=== PATIENT | female | born 1960 | race Caucasian/White ===

== ENCOUNTER 2017-02-24 23:45 | Emergency (ER) | payer MEDICARE ==
[~2017-02-24] VITALS: Ht 167.6 cm; Wt 94.7 kg
[2017-02-24 23:50] VITALS: BP 158/117; PULSE 127; RESP 20; TEMP 100.1; O2SAT 96
[2017-02-25 00:45] VITALS: PULSE 117; O2SAT 95
[2017-02-25 01:21] VITALS: PULSE 113; O2SAT 96
--- NOTE | 2017-02-25 01:21 | PD ---
HPI Chief Complaint: ENT Complaint Time Seen by Provider: 01:21 Travel History International Travel<30 days: No Contact w/Intl Traveler<30days: No Traveled to known affect area: No History of Present Illness HPI 56-year-old female presents to the emergency department with sore throat since Saturday and fever noted tonight. Patient states symptoms have worsened with [id number] medications. Patient presents now for further evaluation. Patient denies any shortness of breath now with increased congested and productive cough. Patient is not diabetic. 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") Headaches: Yes Hypertension: Yes Insomnia: Yes Kidney Stones: Yes Pneumonia: Yes Thyroid Disease: Yes (HYPOTHYROIDISM) Tetanus Vaccination: > 5 Years Influenza Vaccination: Yes ?: Not Menopausal: Yes : 0 Ovarian Cysts: Yes Past Surgical History Tonsillectomy: Yes Social History Alcohol Use: No Tobacco Use: Yes (08/29 PPD) Substance Use: No Allergies-Medications (Allergen,Severity, Reaction): Coded Allergies: No Known Allergies (Unverified , 02/25/17) Reported Meds & Prescriptions Reported Meds & Active Scripts Active No Active Prescriptions or Reported Medications Review of Systems Except as stated in HPI: all other systems reviewed are Neg General / Constitutional: Positive: Fever, No: Chills HENT: Positive: Sore Throat, Congestion Cardiovascular: No: Chest Pain or Discomfort Respiratory: Positive: Cough, No: Shortness of Breath Gastrointestinal: No: Vomiting, Abdominal Pain Genitourinary: No: Decreased Urinary Output, Flank Pain Musculoskeletal: Positive: Myalgias, Arthralgias Skin: No Rash Neurologic: No: Weakness Psychiatric: No: Anxiety Hematologic/Lymphatic: No: Lymph Node Enlargement Physical Exam Narrative GENERAL: Well-developed well-nourished female in no acute distress no respiratory distress; no stridor or hoarseness. SKIN: Warm and dry. HEAD: Normocephalic. EYES: No scleral icterus. No injection or drainage. ENT: Mucous membranes moist airway is patent pharyngeal erythema. NECK: Supple, trachea midline. No JVD or lymphadenopathy. CARDIOVASCULAR: Regular rate and rhythm without murmurs, gallops, or rubs. RESPIRATORY: Breath sounds equal bilaterally. No accessory muscle use. GASTROINTESTINAL: Abdomen soft, non-tender, nondistended. MUSCULOSKELETAL: No cyanosis, or edema. BACK: Nontender without obvious deformity. No CVA tenderness. Data Data Last Documented VS Vital Signs Date Time Temp Pulse Resp B/P Pulse Ox O2 Delivery O2 Flow Rate FiO2 02/25/17 02:02 99.4 105 18 96 Room Air 02/24/17 23:50 158/117 Orders Group A Rapid Strep Screen (02/25/17 01:23) Ibuprofen (Motrin) (02/25/17 01:30) Amoxicillin (Trimox) (02/25/17 01:30) Strep Culture (Group A) (02/25/17 01:28) MDM Medical Decision Making Medical Screen Exam Complete: Yes Emergency Medical Condition: Yes Medical Record Reviewed: Yes Interpretation(s) rsa: negative Differential Diagnosis Pharyngitis, viral syndrome, bronchitis, pneumonia Narrative Course Patient given first dose of antibiotic by mouth in the emergency department antipyretics administered ibuprofen and acetaminophen rapid strep antigen specimen collected and sent for resulting RSA is negative Temperature has responded well to antipyretics Patient stable for outpatient management Diagnosis Primary Impression: Bronchitis Referrals: Primary Care Physician call for appointment Patient Instructions: General Instructions Departure Forms: Tests/Procedures, Work Release Special Instructions: no work x 1 day Additional Instructions: Increase fluid hydration Take acetaminophen/Tylenol every 4 hours as needed for fever 100.4F or greater Take ibuprofen/Advil/Motrin 600 mg as often as every 6 hours were up to 800 mg as often as every 8 hours as needed for fever 100.4F or greater avoid prolonged use of high-dose ibuprofen Complete course of antibiotic as prescribed Return to the emergency department for any concerns or change in condition Discontinue tobacco use Use inhaler as prescribed as needed for shortness breath or wheezing No work times one day Med/Other Pt SpecificInfo: Prescription(s) given Scripts Albuterol 8.5 GM Inh (Proair Hfa 8.5 GM Inh)90 Mcg/Act Aer2 Puff INH Q4-6H PRN ( SHORTNESS OF BREATH) #1 INHALER Ref 0 108 mcg/actuation Prov:Tarn Power MD 02/25/17 Methylprednisolone Dosepak (Medrol Dosepak)4 Mg Dspk4 Mg PO DIRECTED #1 DSPK Ref 0 Per Pharmacist direction Prov:Tran Power MD 02/25/17 Azithromycin (Zithromax Z-Sandeep)250 Mg [id number] Mg PO DIRECTED #1 DSPK Ref 0 500 MG (2 tabs) day 1, then 1 tab days 2-5. Prov:Tran Power MD 02/25/17 Disposition: 01 DISCHARGE HOME Condition: Stable Tran Power MD Feb 25, 2017 01:21
[2017-02-25 01:24] VITALS: TEMP 101.5
[2017-02-25] MEDS ORDERED: IBUPROFEN 800 MG TAB PO ONE (01:30)
[2017-02-25] MEDS ORDERED: AMOXICILLIN (TRIHYDRATE) 500 MG CAP PO ONE (01:30)
[2017-02-25 02:02] VITALS: PULSE 105; RESP 18; TEMP 99.4; O2SAT 96
[2017-02-25] MEDS ORDERED: MEDR4PAK PO (02:11)
[2017-02-25] MEDS ORDERED: ALBUAER3 INH (02:11)
[2017-02-25] MEDS ORDERED: ZITHTAB PO (02:11)
[2017-02-25] MEDS ORDERED: ACETAMINOPHEN 325 MG TAB PO ONE (02:15)
[2017-02-25 02:24] VITALS: BP 140/88
== END 2017-02-25 02:25 | disposition home or self-care (01) ==
LOC: PHED 23:45
DX: J40 Bronchitis, not specified as acute or chronic (principal); R07.0 Pain in throat; R50.9 Fever, unspecified; I10 Essential (primary) hypertension; E03.9 Hypothyroidism, unspecified; Z72.0 Tobacco use; Z87.09 Personal history of other diseases of the respiratory system; Z86.59 Personal history of other mental and behavioral disorders; Z87.442 Personal history of urinary calculi
CPT/HCPCS: 87081; 87880; 99284

== ENCOUNTER 2017-12-26 10:47 | Observation (INO) | payer MEDICARE ==
[2017-12-26] VITALS (9 sets, daily range): BP systolic 119–151; BP diastolic 78–99; PULSE 91–128; RESP 15–20; TEMP 97.7–98.3; O2SAT 96–99
[~2017-12-26] VITALS: Ht 167.6 cm; Wt 90.0 kg
[~2017-12-26 10:47] MED LIST: ALBUAER3 INH; MEDR4PAK PO; ZITHTAB PO
[2017-12-26] MEDS ORDERED: LEVO.125 PO (11:14)
[2017-12-26] MEDS ORDERED: LISI2.5T3 PO (11:14)
[2017-12-26] MEDS ORDERED: SODIUM CHLOR 0.9% 1000 ML INJ 1,000 ML IV SCH (11:26)
[2017-12-26] MEDS ORDERED: SODIUM CHLORIDE 0.9% FLUSH 10 ML FLUSH IV FLUSH PRN ×2 (11:30→21:15)
--- NOTE | 2017-12-26 11:33 | PD ---
HPI Chief Complaint: Neuro Symptoms/ Deficits Time Seen by Provider: 11:26 Travel History International Travel<30 days: No Contact w/Intl Traveler<30days: No Traveled to known affect area: No History of Present Illness HPI The patient is a 57-year-old female who presents to the emergency department for altered mental status. 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 The patient states she was normal last night, went to a 12-step meeting, was normal. However, when she awakened this morning she noticed that her speech was different, her tongue felt larger, she had dizziness, difficulty with ambulation, difficulty writing with her right hand. The patient states her speech has improved, however, she still feels "off ". She denies any known history of CVA or TIA. Symptoms are moderate. She denies any headache and does note her speech has improved. The patient denies any chest pain, shortness of breath, nausea, vomiting, or abdominal pain. 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") Headaches: Yes Hypertension: Yes Insomnia: Yes Kidney Stones: Yes Pneumonia: Yes Thyroid Disease: Yes (HYPOTHYROIDISM) Menopausal: Yes : 0 Ovarian Cysts: Yes Past Surgical History Tonsillectomy: Yes Social History Alcohol Use: No Tobacco Use: Yes (08/29 PPD) Substance Use: No Allergies-Medications (Allergen,Severity, Reaction): Coded Allergies: No Known Allergies (Verified Adverse Reaction, Unknown, 12/26/17) Reported Meds & Prescriptions Reported Meds & Active Scripts Active Reported Synthroid (Levothyroxine Sodium) 125 Mcg Tab 125 Mcg PO DAILY Lisinopril 2.5 Mg Tab 2.5 Mg PO DAILY Review of Systems Except as stated in HPI: all other systems reviewed are Neg General / Constitutional: No: Fever Eyes: Positive: Other (Patient self flushed denies that of her eyes earlier today which have resolved), No: Blurred Vision HENT: Positive: Lightheadedness, No: Headaches Cardiovascular: No: Chest Pain or Discomfort Respiratory: No: Shortness of Breath Gastrointestinal: No: Nausea, Vomiting, Abdominal Pain Genitourinary: No: Dysuria Musculoskeletal: Positive: Weakness Neurologic: Positive: Dizziness, Ataxia, Change in Mentation, Slurred Speech, No: Paresthesia, Sensory Disturbance Physical Exam Narrative GENERAL: Awake, alert, pleasant 57-year-old female who appears her stated age and is in no acute respiratory distress. SKIN: Focused skin assessment warm/dry. HEAD: Atraumatic. Normocephalic. EYES: Pupils equal and round. 3 mm bilateral and reactive. ENT: No nasal bleeding or discharge. No obvious angioedema of the tongue, lips , or uvula. Dry mucous membranes. NECK: Trachea midline. No JVD. CARDIOVASCULAR: Regular, tachycardic with a heart rate in the 120s. RESPIRATORY: No accessory muscle use. Clear to auscultation. Breath sounds equal bilaterally. GASTROINTESTINAL: Abdomen soft, non-tender, nondistended. No rebound tenderness. MUSCULOSKELETAL: No obvious deformities. No clubbing. No cyanosis. No edema. NEUROLOGICAL: Awake and alert. Mild change in the left nasolabial fold but smile is symmetric. Pupils equal round reactive to light, EOMs are intact, patient is able to see fingers at a distance of 2 feet without difficulty. Mild decreased sensation in the V2 distribution left face but the V1 and V3 is symmetric. Sensation in arms and legs is symmetric. No visible drift of the arms or legs. Finger to nose is normal. Heel to kang is normal. Patient is oriented 4. PSYCHIATRIC: Appropriate mood and affect; insight and judgment normal. Data Data Last Documented VS Vital Signs Date Time Temp Pulse Resp B/P (MAP) Pulse Ox O2 Delivery O2 Flow Rate FiO2 12/26/17 12:54 98.1 98 15 125/81 (96) 97 Room Air Orders Orders Electrocardiogram (12/26/17 11:26) Ammonia (12/26/17 11:26) Complete Blood Count With Diff (12/26/17 11:) Comprehensive Metabolic Panel (12/26/17 11:) Creatine Kinase (Cpk) (12/26/17 11:26) Prothrombin Time / Inr (Pt) (12/26/17:) Act Partial Throm Time (Ptt) (12/26/17 11:) Troponin I (12/26/17 11:) Thyroid Stimulating Hormone (12/26/17 11:26) Urinalysis - C+S If Indicated (12/26/17 11:) Lactic Acid Sepsis Protocol (12/26/17 11:26) Blood Culture (12/26/17 11:) Chest, Single Ap (12/26/17 11:26) Ct Brain W/O Iv Contrast(Rout) (12/26/17 11:) Blood Glucose (12/26/17 11:26) Ecg Monitoring (12/26/17 11:) Iv Access Insert/Monitor (12/26/17 11:) Oximetry (12/26/17 11:) Sodium Chloride 0.9% Flush (Ns Flush) (12/26/17 11:30) Sodium Chlor 0.9% 1000 Ml Inj (Ns 1000 M (12/26/17 11:26) Drug Screen, Random Urine (12/26/17 11:) Alcohol (Ethanol) (12/26/17:) Blood Gas Venous (Vbg) (12/26/17 11:) Mri Brain W/O Contrast (12/26/17 ) Aspirin Chew (Aspirin Chew) (12/26/17 13:15) Place In Observation (12/26/17 ) Vital Signs (Adult) Q2HX12,Q4H (12/26/17 13:32) Nih Stroke Scale - Nihss .Daily (12/26/17 13:32) Neuro Checks Q2HX12,Q4H (12/26/17 13:32) Notify Dr: Other (12/26/17 13:32) Ot Request For Service (12/26/17 13:32) Pt Request For Service (12/26/17 13:32) Speech Therapy Consult-Eval/Tx (12/26/17 13:32) Case Management Consult (12/26/17 ) Activity Oob Ad Felipa (12/26/17 13:32) Nursing Bedside Swallow Assess .ONCE (12/26/17 13:32) Scd Bilateral/Knee High BALDEMAR.QSHIFT (12/26/17 13:32) Diet Npo (12/26/17 Lunch) Complete Blood Count With Diff (12/27/17 06:00) Hemoglobin (Hgb) A1c (12/26/17 13:32) Basic Metabolic Panel (Bmp) (12/27/17 06:00) Lipid Profile (12/27/17 06:00) Us Carotid Arteries Comp Bilat (12/26/17 ) Holter Monitor Recording (12/26/17 ) Echo 2d Comp With Doppler (12/26/17 ) Consult Neurology (12/26/17 ) Sodium Chlor 0.9% 1000 Ml Inj (Ns 1000 M (12/26/17 13:32) Enalaprilat Inj (Vasotec Inj) (12/26/17 13:45) Aspirin (Aspirin) (12/27/17 09:00) Atorvastatin (Lipitor) (12/26/17 21:00) Bedside Glucose BALDEMAR.CSUGAR (12/26/17 13:32) ^ Discontinue Insulin Orders (12/26/17 13:32) Insulin Aspart Supplemtl Scale (Novolog (12/26/17 17:00) Dextrose 50% In Hammad (Vial) Inj (D50w (Vi (12/26/17 13:45) Glucagon Inj (Glucagon Inj) (12/26/17 13:45) Gas Refrigerator Servicer / Telemetry BALDEMAR.Q8H (12/26/17 13:32) Consult Stroke Navigator (12/26/17 ) Heparin Inj (Heparin Inj) (12/26/17 13:45) Scd Bilateral/Knee High BALDEMAR.BID (12/26/17 13:32) Labs Laboratory Tests Test 12/26/17 11:39 12/26/17 11:47 12/26/17 11:50 Blood Gas Puncture Site SWAN MELONIE LINE Blood Gas Patient Temperature 98.6 Venous Blood pH 7.42 Venous Blood Partial Pressure CO2 36 mmHg Venous Blood Partial Pressure O2 58 mmHg Venous Blood HCO3 23 mmol/L Venous Blood Oxygen Saturation 88 % Venous Blood Oxygen Content 17.1 Vol % Venous Blood Base Excess -1.2 mmol/L Oxygen Delivery Device ROOM AIR Blood Gas Inspired Oxygen 21 % White Blood Count 4.7 TH/MM3 Red Blood Count 4.26 MIL/MM3 Hemoglobin 13.9 GM/DL Hematocrit 39.1 % Mean Corpuscular Volume 91.8 FL Mean Corpuscular Hemoglobin 32.7 PG Mean Corpuscular Hemoglobin Concent 35.7 % Red Cell Distribution Width 13.1 % Platelet Count 151 TH/MM3 Mean Platelet Volume 8.0 FL Neutrophils (%) (Auto) 47.4 % Lymphocytes (%) (Auto) 42.8 % Monocytes (%) (Auto) 7.3 % Eosinophils (%) (Auto) 1.9 % Basophils (%) (Auto) 0.6 % Neutrophils # (Auto) 2.2 TH/MM3 Lymphocytes # (Auto) 2.0 TH/MM3 Monocytes # (Auto) 0.3 TH/MM3 Eosinophils # (Auto) 0.1 TH/MM3 Basophils # (Auto) 0.0 TH/MM3 CBC Comment DIFF FINAL Differential Comment Prothrombin Time 10.7 SEC Prothromb Time International Ratio 1.1 RATIO Activated Partial Thromboplast Time 31.2 SEC Blood Urea Nitrogen 14 MG/DL Creatinine 0.77 MG/DL Random Glucose 286 MG/DL Total Protein 8.1 GM/DL Albumin 3.3 GM/DL Calcium Level 8.3 MG/DL Alkaline Phosphatase 87 U/L Aspartate Amino Transf (AST/SGOT) 94 U/L Alanine Aminotransferase (ALT/SGPT) 158 U/L Total Bilirubin 0.4 MG/DL Sodium Level 133 MEQ/L Potassium Level 3.9 MEQ/L Chloride Level 101 MEQ/L Carbon Dioxide Level 23.5 MEQ/L Anion Gap 9 MEQ/L Estimat Glomerular Filtration Rate 77 ML/MIN Lactic Acid Level 1.7 mmol/L Ammonia 27 MCMOL/L Total Creatine Kinase 124 U/L Troponin I LESS THAN 0.02 NG/ML Thyroid Stimulating Hormone 3rd Gen 0.795 uIU/ML Ethyl Alcohol Level LESS THAN 3 MG/DL Urine Color YELLOW Urine Turbidity CLEAR Urine pH 5.5 Urine Specific [place] 1.033 Urine Protein NEG mg/dL Urine Glucose (UA) 1000 mg/dL Urine Ketones NEG mg/dL Urine Occult Blood NEG Urine Nitrite NEG Urine Bilirubin NEG Urine Urobilinogen LESS THAN 2.0 MG/DL Urine Leukocyte Esterase NEG Urine WBC 3 /hpf Urine Squamous Epithelial Cells 8 /hpf Microscopic Urinalysis Comment CATH-CULT NOT IND Urine Opiates Screen NEG Urine Barbiturates Screen NEG Urine Amphetamines Screen NEG Urine Benzodiazepines Screen NEG Urine Cocaine Screen NEG Urine Cannabinoids Screen NEG [facility] Medical Decision Making Medical Screen Exam Complete: Yes Emergency Medical Condition: Yes Medical Record Reviewed: Yes Interpretation(s) EKG reveals sinus tachycardia with a heart rate of 114. Q-wave noted in lead III. Last Impressions Head CT 12/26/171125 Signed Impressions: Service Date/Time: December 12:05 - CONCLUSION: Negative noncontrast head CT Moses Call MD Chest X-Ray 12/26/171125 Signed Impressions: Service Date/Time: December 11:32 - CONCLUSION: The lungs are clear. Navdeep Whitlock MD Laboratory Tests Test 12/26/17 11:39 12/26/17 11:47 12/26/17 11:50 Blood Gas Puncture Site SWAN MELONIE LINE Blood Gas Patient Temperature 98.6 Venous Blood pH 7.42 Venous Blood Partial Pressure CO2 36 mmHg Venous Blood Partial Pressure O2 58 mmHg Venous Blood HCO3 23 mmol/L Venous Blood Oxygen Saturation 88 % Venous Blood Oxygen Content 17.1 Vol % Venous Blood Base Excess -1.2 mmol/L Oxygen Delivery Device ROOM AIR Blood Gas Inspired Oxygen 21 % White Blood Count 4.7 TH/MM3 Red Blood Count 4.26 MIL/MM3 Hemoglobin 13.9 GM/DL Hematocrit 39.1 % Mean Corpuscular Volume 91.8 FL Mean Corpuscular Hemoglobin 32.7 PG Mean Corpuscular Hemoglobin Concent 35.7 % Red Cell Distribution Width 13.1 % Platelet Count 151 TH/MM3 Mean Platelet Volume 8.0 FL Neutrophils (%) (Auto) 47.4 % Lymphocytes (%) (Auto) 42.8 % Monocytes (%) (Auto) 7.3 % Eosinophils (%) (Auto) 1.9 % Basophils (%) (Auto) 0.6 % Neutrophils # (Auto) 2.2 TH/MM3 Lymphocytes # (Auto) 2.0 TH/MM3 Monocytes # (Auto) 0.3 TH/MM3 Eosinophils # (Auto) 0.1 TH/MM3 Basophils # (Auto) 0.0 TH/MM3 CBC Comment DIFF FINAL Differential Comment Prothrombin Time 10.7 SEC Prothromb Time International Ratio 1.1 RATIO Activated Partial Thromboplast Time 31.2 SEC Blood Urea Nitrogen 14 MG/DL Creatinine 0.77 MG/DL Random Glucose 286 MG/DL Total Protein 8.1 GM/DL Albumin 3.3 GM/DL Calcium Level 8.3 MG/DL Alkaline Phosphatase 87 U/L Aspartate Amino Transf (AST/SGOT) 94 U/L Alanine Aminotransferase (ALT/SGPT) 158 U/L Total Bilirubin 0.4 MG/DL Sodium Level 133 MEQ/L Potassium Level 3.9 MEQ/L Chloride Level 101 MEQ/L Carbon Dioxide Level 23.5 MEQ/L Anion Gap 9 MEQ/L Estimat Glomerular Filtration Rate 77 ML/MIN Lactic Acid Level 1.7 mmol/L Ammonia 27 MCMOL/L Total Creatine Kinase 124 U/L Troponin I LESS THAN 0.02 NG/ML Thyroid Stimulating Hormone 3rd Gen 0.795 uIU/ML Ethyl Alcohol Level LESS THAN 3 MG/DL Urine Color YELLOW Urine Turbidity CLEAR Urine pH 5.5 Urine Specific [place] 1.033 Urine Protein NEG mg/dL Urine Glucose (UA) 1000 mg/dL Urine Ketones NEG mg/dL Urine Occult Blood NEG Urine Nitrite NEG Urine Bilirubin NEG Urine Urobilinogen LESS THAN 2.0 MG/DL Urine Leukocyte Esterase NEG Urine WBC 3 /hpf Urine Squamous Epithelial Cells 8 /hpf Microscopic Urinalysis Comment CATH-CULT NOT IND Urine Opiates Screen NEG Urine Barbiturates Screen NEG Urine Amphetamines Screen NEG Urine Benzodiazepines Screen NEG Urine Cocaine Screen NEG Urine Cannabinoids Screen NEG Differential Diagnosis Differential diagnoses include CVA, TIA, intracranial hemorrhage, encephalopathy , seizure, complicated migraine, metabolic encephalopathy, drug ingestion. Narrative Course IV was established, labs are drawn and sent, and the patient was placed on cardiac telemetry monitoring and continuous pulse oximetry monitoring. EKG was ordered and interpreted. CT of the brain was obtained. Tox screen was sent to lab. The patient was administered IV fluids. The patient was not a stroke alert candidate, she was last seen and heard a normal last night at approximately 8 PM. The patient's dysarthria is also improved. The patient has no acute focal deficits, does have transient awareness as well as transient dysarthria, unsure if this is TIA/CVA versus encephalopathy. CT the brain is negative. Laboratory evaluation is unremarkable. The patient did continue be tachycardic anywhere from 95 up to 120. 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 As workup is essentially negative, MRI of the brain will be ordered, patient will be a 23 hour observation to the on-call medical service and may benefit from MRI and neurology evaluation. The patient is comfortable with this plan of care and disposition. Physician Communication Physician Communication The on-call medical service was paged for admission. I discussed the patient with Dr. Orr who agrees with 23 hour observation. Diagnosis Primary Impression: Altered mental status Qualified Codes: R40.4 - Transient alteration of awareness Additional Impression: Dysarthria Admitting Information Admitting Physician Requests: Observation Condition: Stable Alvarez Ariza MD December 26, 2017 11:33
--- NOTE | 2017-12-26 12:01 | RADRPT ---
EXAM DATE/TIME: 12/26/2017 11:32 [facility] COMPARISON: No previous studies available for comparison. INDICATIONS : Dizziness and AMS. MEDICAL HISTORY : Hypertension. Chronic obstructive pulmonary disease. SURGICAL HISTORY : None. ENCOUNTER: Initial ACUITY: 1 day PAIN SCORE: 0/10 LOCATION: Bilateral chest FINDINGS: A single view of the chest demonstrates the lungs to be symmetrically aerated without evidence of mas s, infiltrate or effusion. The cardiomediastinal contours are unremarkable. Osseous structures are intact. CONCLUSION: The lungs are clear. Navdeep Whitlock MD on December 26, 2017 at 11:59 Board Certified Radiologist. This report was verified electronically.
[2017-12-26 12:04] LABS: AUTOMATED NEUTROPHIL # 2.2 TH/MM3 (1.8-7.7); BASOPHIL % 0.6 % (0.0-2.0); EOSINOPHIL # 0.1 TH/MM3 (0-0.4); EOSINOPHIL % 1.9 % (0.0-4.0); HEMATOCRIT 39.1 % (35.0-46.0); HEMOGLOBIN 13.9 GM/DL (11.6-15.3); LYMPH % 42.8 % (9.0-44.0); MEAN CELL VOLUME 91.8 FL (80.0-100.0); MEAN CORPUSCULAR HEMOGLOBIN 32.7 PG (27.0-34.0); MEAN CORPUSCULAR HGB CONC 35.7 % (32.0-36.0); MONO % 7.3 % (0.0-8.0); MONOCYTE # 0.3 TH/MM3 (0-0.9); NEUT % 47.4 % (16.0-70.0); PLATELET COUNT 151 TH/MM3 (150-450); RED BLOOD COUNT 4.26 MIL/MM3 (4.00-5.30); RED CELL DISTRIBUTION WIDTH 13.1 % (11.6-17.2); WHITE BLOOD COUNT 4.7 TH/MM3 (4.0-11.0)
[2017-12-26 12:11] LABS: INTERNATIONAL NORMALIZED RATIO 1.1 RATIO; PROTHROMBIN TIME - PATIENT 10.7 SEC (9.8-11.6)
--- NOTE | 2017-12-26 12:21 | RADRPT ---
EXAM DATE/TIME: 12/26/2017 12:05 [facility] COMPARISON: No previous studies available for comparison. INDICATIONS : Altered mental status, swelling in mouth, difficulty writing with an unsteady gait. Symptoms started last night. RADIATION DOSE: 38.54 CTDIvol (mGy) MEDICAL HISTORY : Hypertension. Chronic obstructive pulmonary disease. Asthma, DVT SURGICAL HISTORY : None. ENCOUNTER: Initial ACUITY: 1 day PAIN SCALE: 0/10 LOCATION: cranial TECHNIQUE: Multiple contiguous axial images were obtained of the head. Using automated exposure control and adj ustment of the mA and/or kV according to patient size, radiation dose was kept as low as reasonably a chievable to obtain optimal diagnostic quality images. DICOM format image data is available electro nically for review and comparison. FINDINGS: CEREBRUM: The ventricles are normal for age. No evidence of midline shift, mass lesion, hemorrhage or acute in farction. No extra-axial fluid collections are seen. POSTERIOR FOSSA: The cerebellum and brainstem are intact. The 4th ventricle is midline. The cerebellopontine angle i s unremarkable. EXTRACRANIAL: The visualized portion of the orbits is intact. SKULL: The calvaria is intact. No evidence of skull fracture. CONCLUSION: Negative noncontrast head CT Moses Call MD on December 26, 2017 at 12:20 Board Certified Radiologist. This report was verified electronically.
[2017-12-26 12:27] LABS: ALKALINE PHOSPHATASE 87 U/L (45-117); TOTAL BILIRUBIN ADULT 0.4 MG/DL (0.2-1.0); TOTAL PROTEIN 8.1 GM/DL (6.4-8.2); TROPONIN I LESS THAN 0.02 NG/ML (0.02-0.05)
[2017-12-26 12:35] LABS: BILIRUBIN, URINE NEG (NEG); BLOOD, URINE NEG (NEG); GLUCOSE,URINE 1000 mg/dL (NEG); KETONE, URINE NEG (NEG); NITRITE,URINE NEG (NEG); PH, URINE 5.5 (5.0-8.5); SQUAMOUS EPITHELIAL CELL URINE 8 /hpf (0-5); URINE COLOR YELLOW (YELLW/STRAW); URINE LEUKOCYTE ESTERASE NEG (NEG)
[2017-12-26 12:37] LABS: ALBUMIN 3.3 GM/DL (3.4-5.0); ALT (GPT) 158 U/L (10-53); AST (GOT) 94 U/L (15-37); BICARBONATE 23.5 MEQ/L (21.0-32.0); BLOOD UREA NITROGEN 14 MG/DL (7-18); CALCIUM 8.3 MG/DL (8.5-10.1); CHLORIDE 101 MEQ/L (98-107); CREATININE 0.77 MG/DL (0.50-1.00); GLOMERULAR FILTRATION RATE 77 ML/MIN (>89); GLUCOSE,RANDOM 286 MG/DL (74-106); SODIUM (NA) 133 MEQ/L (136-145)
[2017-12-26] MEDS ORDERED: ASPIRIN 81 MG CHEW TAB CHEW ONE (13:15)
[2017-12-26] MEDS ORDERED: GLUCAGON 1 MG/ML VIAL OTHER PRN ×2 (13:45→21:15)
[2017-12-26] MEDS ORDERED: ENALAPRILAT 1.25 MG/ML VIAL IV PUSH PRN (13:45)
[2017-12-26] MEDS ORDERED: DEXTROSE 50% IN WATER 50 ML VIAL(D50) IV PUSH PRN ×2 (13:45→21:15)
[2017-12-26] MEDS: SODIUM CHLOR 0.9% 1000 ML INJ 1,000 ML IV SCH (14:19)
[2017-12-26] MEDS: HEPARIN SODIUM - SQ 10,000 UNITS/ML VIAL SQ SCH ×2 (14:27→21:28)
[2017-12-26 14:42] LABS: HEMOGLOBIN A1C 6.3 % (4.3-6.0)
--- NOTE | 2017-12-26 15:36 | RADRPT ---
EXAM DATE/TIME: 12/26/2017 14:36 [facility] COMPARISON: No previous studies available for comparison. INDICATIONS : Transient ischemic attack. MEDICAL HISTORY : Hypertension. COPD. Kidney stones. SURGICAL HISTORY : Tonsillectomy. ENCOUNTER: Initial ACUITY: 1 day PAIN SCORE: 0/10 LOCATION: Bilateral neck PEAK SYSTOLIC VELOCITIES (cm/sec): ICA/CCA RATIO: Right: 0.9 Left: 1.0 ICA: Right: 75 Left: 87 CCA: Right: 83 Left: 91 ECA: Right: 73 Left: 86 VERTEBRAL: Right: 63 antegrade Left: 56 antegrade Elevated flow velocities and ICA/CCA ratios have been found to correlate with increased degrees of vessel stenosis, calculated as percentage of diameter relative to a normal segment of distal ICA/CCA FINDINGS: RIGHT CAROTID: There is a mild atherosclerotic plaque in the carotid bulb. No significant stenosis is visualized. LEFT CAROTID: Mild calcified and noncalcified plaque in the carotid bulb. No significant stenosis is visualized. VERTEBRAL ARTERIES: Antegrade flow is seen in both vertebral arteries. MISCELLANEOUS: None. CONCLUSION: 1. Very mild atherosclerotic disease in the carotid bulbs bilaterally. However, no significant stenos is is present within either internal carotid artery (less than 50% stenosis). 2. There is antegrade flow within both vertebral arteries. Ibrahima Wise MD on December 26, 2017 at 15:32 Board Certified Radiologist. This report was verified electronically.
[2017-12-26] MEDS ORDERED: INSULIN ASPART SUPPLEMENTAL SCALE SQ SCH (17:00)
[2017-12-26] MEDS ORDERED: LORazepam 1 MG TAB PO ONE (18:30)
--- NOTE | 2017-12-26 18:40 | HHI.HP ---
[facility] Unknown Admission Diagnosis Altered mental status, dysarthria, rule out TIA/CVA Diagnoses: Chief Complaint: Dysarthria, hypoxia, extremity weakness Travel History International Travel<30 Days: No Contact w/Intl Traveler <30 Da: No Traveled to Known Affected Are: No History of Present Illness This is a 57 years old female presented to the ED with a complaint of dysarthria and ataxia not being able to walk lower extremity weakness started 4 AM this morning patient when he came to the ED she was out of the window for stroke, CT of the carotids was done and it was negative. I saw the patient, her coworker was at the bedside. Patient reported having different speech stent with baseline, exam showed significant upper and lower extremity weakness 2 out of 5, patient denied chest pain or short of breath, she had some dizziness. She has a history of hypertension however no history of hyperlipidemia coronary artery disease diabetes mellitus, she also has hypothyroidism, patient denied any previous history of CVA or TIA, denies any abdominal pain diarrhea constipation nausea vomiting Review of Systems All systems reviewed and was positive for what is mentioned in history of present illness otherwise negative Past Family Social History Past Medical History Asthma Anxiety Depression Hypothyroidism Insomnia Hypertension Tonsillectomy Past Surgical History Tonsillectomy Allergies: Coded Allergies: No Known Allergies (Verified Allergy, Unknown, 12/26/17) Family History Mother and father had lung cancer Social History Smoke 5-6 cigarettes a day no alcohol or illicit drug abuse Physical Exam Vital Signs Vital Signs Date Time Temp Pulse Resp B/P (MAP) Pulse Ox O2 Delivery O2 Flow Rate FiO2 12/26/17 18:31 94 12/26/17 16:30 97.7 95 18 119/82 (94) 97 12/26/17 15:04 98.2 97 20 134/81 (98) 99 12/26/17 12:54 98.1 98 15 125/81 (96) 97 Room Air 12/26/17 12:19 97 12/26/17 11:09 121 15 97 Room Air 12/26/17 11:09 98.1 121 15 133/78 (96) 96 Room Air 12/26/17 10:59 97.9 128 20 151/99 (116) 98 Physical Exam GENERAL: This is a well-nourished, well-developed patient, in no apparent distress. SKIN: No rashes, warm and dry HEAD: Atraumatic. Normocephalic. EYES: Pupils equal round and reactive. Extraocular motions intact. No scleral icterus. ENT: Nose without bleeding, or drainage, Airway patent. NECK: Trachea midline. Supple CARDIOVASCULAR: Regular rate and rhythm without murmurs, gallops, or rubs. RESPIRATORY: Fair air entry bilaterally. No wheezes, rales, or rhonchi. GASTROINTESTINAL: Abdomen soft, non-tender, nondistended. Positive bowel sounds MUSCULOSKELETAL: Extremities without clubbing, cyanosis, or edema. Pedal pulses appreciated NEUROLOGICAL: Awake and alert. Cranial nerves II through XII intact. Motor strength 2-3 out of 5 in all extremity, garbled speech Laboratory Laboratory Tests Test 12/26/17 11:39 12/26/17 11:47 12/26/17 11:50 Blood Gas Puncture Site SWAN MELONIE LINE Blood Gas Patient Temperature 98.6 Venous Blood pH 7.42 Venous Blood Partial Pressure CO2 36 Venous Blood Partial Pressure O2 58 Venous Blood HCO3 23 Venous Blood Oxygen Saturation 88 Venous Blood Oxygen Content 17.1 Venous Blood Base Excess -1.2 Oxygen Delivery Device ROOM AIR Blood Gas Inspired Oxygen 21 White Blood Count 4.7 Red Blood Count 4.26 Hemoglobin 13.9 Hematocrit 39.1 Mean Corpuscular Volume 91.8 Mean Corpuscular Hemoglobin 32.7 Mean Corpuscular Hemoglobin Concent 35.7 Red Cell Distribution Width 13.1 Platelet Count 151 Mean Platelet Volume 8.0 Neutrophils (%) (Auto) 47.4 Lymphocytes (%) (Auto) 42.8 Monocytes (%) (Auto) 7.3 Eosinophils (%) (Auto) 1.9 Basophils (%) (Auto) 0.6 Neutrophils # (Auto) 2.2 Lymphocytes # (Auto) 2.0 Monocytes # (Auto) 0.3 Eosinophils # (Auto) 0.1 Basophils # (Auto) 0.0 CBC Comment DIFF FINAL Differential Comment Prothrombin Time 10.7 Prothromb Time International Ratio 1.1 Activated Partial Thromboplast Time 31.2 Blood Urea Nitrogen 14 Creatinine 0.77 Random Glucose 286 Total Protein 8.1 Albumin 3.3 Calcium Level 8.3 Alkaline Phosphatase 87 Aspartate Amino Transf (AST/SGOT) 94 Alanine Aminotransferase (ALT/SGPT) 158 Total Bilirubin 0.4 Sodium Level 133 Potassium Level 3.9 Chloride Level 101 Carbon Dioxide Level 23.5 Anion Gap 9 Estimat Glomerular Filtration Rate 77 Hemoglobin A1c 6.3 Lactic Acid Level 1.7 Ammonia 27 Total Creatine Kinase 124 Troponin I LESS THAN 0.02 Thyroid Stimulating Hormone 3rd Gen 0.795 Ethyl Alcohol Level LESS THAN 3 Urine Color YELLOW Urine Turbidity CLEAR Urine pH 5.5 Urine Specific [place] 1.033 Urine Protein NEG Urine Glucose (UA) 1000 Urine Ketones NEG Urine Occult Blood NEG Urine Nitrite NEG Urine Bilirubin NEG Urine Urobilinogen LESS THAN 2.0 Urine Leukocyte Esterase NEG Urine WBC 3 Urine Squamous Epithelial Cells 8 Microscopic Urinalysis Comment CATH-CULT NOT IND Urine Opiates Screen NEG Urine Barbiturates Screen NEG Urine Amphetamines Screen NEG Urine Benzodiazepines Screen NEG Urine Cocaine Screen NEG Urine Cannabinoids Screen NEG Date/Time Source Procedure Growth Status 12/26/17 11:35 Blood Peripheral Aerobic Blood Culture Pending Received 12/26/17 11:35 Blood Peripheral Anaerobic Blood Culture Pending Received Result Diagram: 12/26/17 1147 12/26/17 1147 Imaging Last Impressions Head CT 12/26/17 1126 Signed Impressions: Service Date/Time: December 12:05 - CONCLUSION: Negative noncontrast head CT Moses Call MD Chest X-Ray 12/26/17 1126 Signed Impressions: Service Date/Time: December 11:32 - CONCLUSION: The lungs are clear. Navdeep Whitlock MD Caprini VTE Risk Assessment Caprini VTE Risk Assessment: Mod/High Risk (score >= 2) Caprini Risk Assessment Model Point Value = 1 Point Value = 2 Point Value = 3 Point Value = 5 Age 41-60 Minor surgery BMI > 25 kg/m2 Swollen legs Varicose veins or History of unexplained or recurrent spontaneous Oral contraceptives or hormone replacement Sepsis (< 1 month) Serious lung disease, including pneumonia (< 1 month) Abnormal pulmonary function Acute myocardial infarction Congestive heart failure (< 1 month) History of inflammatory bowel disease Medical patient at bed rest Age 61-74 Arthroscopic surgery Major open surgery (> 45 min) Laparoscopic surgery (> 45 min) Malignancy Confined to bed (> 72 hours) Immobilizing plaster cast Central venous access Age >= 75 History of VTE Family history of VTE Factor V Leiden Prothrombin [id number] Lupus anticoagulant Anticardiolipin antibodies Elevated serum homocysteine Heparin-induced thrombocytopenia Other congenital or acquired thrombophilia Stroke (< 1 month) Elective arthroplasty Hip, pelvis, or leg fracture Acute spinal cord injury (< 1 month) Prophylaxis Regimen Total Risk Factor Score Risk Level Prophylaxis Regimen 0-1 Low Early ambulation 2 Moderate Order ONE of the following: *Sequential Compression Device (SCD) *Heparin 5000 units SQ BID 3-4 Higher Order ONE of the following medications: *Heparin 5000 units SQ TID *Enoxaparin/Lovenox 40 mg SQ daily (WT < 150 kg, CrCl > 30 mL/min) *Enoxaparin/Lovenox 30 mg SQ daily (WT < 150 kg, CrCl > 10-29 mL/min) *Enoxaparin/Lovenox 30 mg SQ BID (WT < 150 kg, CrCl > 30 mL/min) AND/OR *Sequential Compression Device (SCD) 5 or more Highest Order ONE of the following medications: *Heparin 5000 units SQ TID (Preferred with Epidurals) *Enoxaparin/Lovenox 40 mg SQ daily (WT < 150 kg, CrCl > 30 mL/min) *Enoxaparin/Lovenox 30 mg SQ daily (WT < 150 kg, CrCl > 10-29 mL/min) *Enoxaparin/Lovenox 30 mg SQ BID (WT < 150 kg, CrCl > 30 mL/min) AND *Sequential Compression Device (SCD) Assessment and Plan Assessment and Plan 67-year-old female with history of hypertension hypothyroidism presents with Acute onset dysarthria ataxia and worsening weakness Even though having for names weakness is not consistent with CVA, we will go ahead and initiate TIA/CVA protocol, with neuro check, monitor, 2D echo, aspirin has been given, I reviewed CT of the head no acute issue, will order MRI /MRA , consult neurology, PT OT, ST, keep n.p.o. for now until swallow Hypertension: Will apply relative permissive hypertension will add Vasotec blood pressure above 180 Hypothyroidism Continue statin DVT prophylaxis with heparin and SCD Discussed Condition With Patient in ED physician Aniket Orr MD December 26, 2017 18:40
--- NOTE | 2017-12-26 20:08 | RADRPT ---
EXAM DATE/TIME: 12/26/2017 18:53 [facility] COMPARISON: No previous studies available for comparison. INDICATIONS : CVA. Dysarthria and confusion. MEDICAL HISTORY : Hypertension. SURGICAL HISTORY : Tonsillectomy. Left foot. ENCOUNTER: Initial ACUITY: 1 day PAIN SCORE: 0/10 LOCATION: Head. TECHNIQUE: Multiplanar, multisequence MRI of the brain was performed without contrast. FINDINGS: CEREBRUM: The ventricles are normal for age. No evidence of midline shift, mass lesion, hemorrhage or acute in farction. No extraaxial fluid collections are seen. The pituitary gland and suprasellar cistern are normal in configuration. WHITE MATTER: Minimal signal abnormalities are seen in the white matter. POSTERIOR FOSSA: The cerebellum and brainstem are intact. The 4th ventricle is midline. The cerebellopontine angle is unremarkable. The cerebellar tonsils are normal in position. DIFFUSION IMAGING: No focal areas of restricted diffusion are seen. No evidence of acute infarction. EXTRACRANIAL: The visualized portions of the orbits and paranasal sinuses are unremarkable. CONCLUSION: 1. No acute findings. No recent infarct. Minimal white matter ischemic changes. Jakub Montoya MD on December 26, 2017 at 20:01 Board Certified Radiologist. This report was verified electronically.
[2017-12-26] MEDS ORDERED: ATORVASTATIN 10 MG TAB PO SCH (21:00)
--- NOTE | 2017-12-26 21:32 | MB ---
cc: Giovanni Leslie MD, PhD DATE: 12/26/2017 REASON FOR CONSULTATION: Possible TIA. HISTORY OF PRESENT ILLNESS: Ms. Romero is a very pleasant 57-year-old female who woke up this morning around 04:00 a.m., noted that she had difficulty with her balance, trouble walking, moving from [id number]. She also had a sense of images moving in her visual field. She had slurring of her speech as well and trouble with confusion, orientation. Her symptoms have since improved, but she still feels somewhat fatigued. PAST MEDICAL HISTORY: History of depression, hypothyroidism, anxiety, hypertension, insomnia, tonsillectomy. MEDICATIONS: She takes Synthroid and lisinopril. SOCIAL HISTORY: She does smoke. Denies drug use or alcohol use. NEUROLOGICAL PHYSICAL EXAMINATION: VITAL SIGNS: Her blood pressure is 122/84, pulse is 91, respiratory rate is 18, temperature 98 degrees. NEUROLOGIC: Higher cortical function. She is alert and oriented. Speech is normal presently. Cranial nerves 2-12 are normal. Motor, she has normal strength of all major groups in both upper and lower extremities. Fine motor skills normal. Cerebellar testing is normal with no dysmetria. Reflexes symmetric. IMAGING: MRI of the brain, no acute changes present. No acute stroke is identified. CT of the brain is normal. Carotid ultrasound, minimal atherosclerosis. No significant stenosis is seen. ECHOCARDIOGRAM: Pending. Her EKG is normal sinus rhythm. Sinus tachycardia. LABORATORY DATA: The white count is 4700, hemoglobin 13.9, hematocrit 39%, platelet count 151,000. Sodium 133, potassium 3.9, chloride 101, CO2 23.5, the BUN is 14, creatinine 0.77, GFR 77, glucose 286, AST 94, ALT is 158. TSH 0.795. PT 10.7, INR 1.1, APTT 31.7. Tox screen negative. IMPRESSION: Probable vertebrobasilar transient ischemic attack. RECOMMENDATIONS: Recommend following up on the echocardiogram, aspirin 325 mg daily. Also, check a lipid panel. If the patient is stable tomorrow, echocardiogram unremarkable and telemetry is normal, then she would be stable for discharge from the neurologic standpoint. Followup with me in 2-3 weeks. Also, consider outpatient cardiology evaluation to consider a loop recorder to be sure there is no atrial fibrillation. Giovanni Leslie MD, PhD SEDRICK/LIONEL , 09:13 PM , 09:31 PM
[2017-12-27 03:39] VITALS: BP 103/66; PULSE 87; RESP 18; TEMP 98; O2SAT 95
[2017-12-27 05:48] LABS: AUTOMATED NEUTROPHIL # 1.6 TH/MM3 (1.8-7.7); BASOPHIL % 0.6 % (0.0-2.0); EOSINOPHIL # 0.1 TH/MM3 (0-0.4); EOSINOPHIL % 3.2 % (0.0-4.0); HEMATOCRIT 38.9 % (35.0-46.0); HEMOGLOBIN 13.6 GM/DL (11.6-15.3); LYMPH % 51.6 % (9.0-44.0); LYMPHOCYTE # 2.2 TH/MM3 (1.0-4.8); MEAN CELL VOLUME 94.5 FL (80.0-100.0); MEAN PLATELET VOLUME 7.4 FL (7.0-11.0); MONO % 5.5 % (0.0-8.0); MONOCYTE # 0.2 TH/MM3 (0-0.9); NEUT % 39.1 % (16.0-70.0); PLATELET COUNT 148 TH/MM3 (150-450); RED BLOOD COUNT 4.12 MIL/MM3 (4.00-5.30); RED CELL DISTRIBUTION WIDTH 13.2 % (11.6-17.2); WHITE BLOOD COUNT 4.2 TH/MM3 (4.0-11.0)
[2017-12-27 06:25] LABS: BICARBONATE 28.6 MEQ/L (21.0-32.0); BLOOD UREA NITROGEN 12 MG/DL (7-18); CALCIUM 8.7 MG/DL (8.5-10.1); CHLORIDE 108 MEQ/L (98-107); CHOLESTEROL 139 MG/DL (120-200); CHOLESTEROL/ HDL RATIO 3.28 RATIO; CREATININE 0.75 MG/DL (0.50-1.00); GLOMERULAR FILTRATION RATE 80 ML/MIN (>89); GLUCOSE,RANDOM 110 MG/DL (74-106); HDL CHOLESTEROL 42.3 MG/DL (40.0-60.0); LDL CHOLESTEROL 63 MG/DL (0-99); SODIUM (NA) 145 MEQ/L (136-145); TRIGLYCERIDES 170 MG/DL (42-150)
[2017-12-27] MEDS: HEPARIN SODIUM - SQ 10,000 UNITS/ML VIAL SQ SCH ×2 (07:36→13:45)
[2017-12-27] MEDS: INSULIN ASPART SUPPLEMENTAL SCALE SQ SCH ×2 (08:00→12:00)
[2017-12-27 08:06] VITALS: BP 110/63; PULSE 65; RESP 18; TEMP 97.9; O2SAT 96
[2017-12-27] MEDS ORDERED: SODIUM CHLORIDE 0.9% FLUSH 10 ML FLUSH IV FLUSH SCH (09:00)
[2017-12-27] MEDS ORDERED: ASPIRIN 325 MG TAB PO SCH ×2 (09:00)
[2017-12-27] MEDS: SODIUM CHLOR 0.9% 1000 ML INJ 1,000 ML IV SCH (09:00)
[2017-12-27] MEDS ORDERED: LIPI20TA PO (11:49)
[2017-12-27] MEDS ORDERED: METF500T4 PO (11:49)
[2017-12-27] MEDS ORDERED: ASA325 PO (11:49)
--- NOTE | 2017-12-27 14:13 | HHI.PR ---
Subjective Remarks Follow-up for possible vertebrobasilar TIA. Patient is currently doing well. Denies any chest pain, shortness of breath, fever or chills. Objective Vitals Vital Signs Date Time Temp Pulse Resp B/P (MAP) Pulse Ox O2 Delivery O2 Flow Rate FiO2 12/27/17 09:13 21 12/27/17 08:06 97.9 65 18 110/63 (79) 96 12/27/17 03:39 98.0 87 18 103/66 (78) 95 12/26/17 23:28 97.8 93 16 120/79 (93) 96 12/26/17 19:39 98.3 91 18 122/84 (97) 97 12/26/17 18:31 94 12/26/17 16:30 97.7 95 18 119/82 (94) 97 12/26/17 15:04 98.2 97 20 134/81 (98) 99 I/O 12/26/17 12/26/17 12/26/17 12/27/17 12/27/17 12/27/17 07:00 15:00 23:00 07:00 15:00 23:00 Intake Total 1000 ml 200 ml Balance 1000 ml 200 ml Intake Oral 200 ml IV Total 1000 ml Result Diagram: 12/27/17 0523 12/27/17 0523 Imaging Last Impressions Head CT 12/26/176 Signed Impressions: Service Date/Time: December 12:05 - CONCLUSION: Negative noncontrast head CT Moses Call MD Chest X-Ray 12/26/171125 Signed Impressions: Service Date/Time: December 11:32 - CONCLUSION: The lungs are clear. Navdeep Whitlock MD Carotid Artery Ultrasound 12/26/17 0000 Signed Impressions: Service Date/Time: December 14:36 - CONCLUSION: 1. Very mild atherosclerotic disease in the carotid bulbs bilaterally. However, no significant stenosis is present within either internal carotid artery (less than 50%% stenosis). 2. There is antegrade flow within both vertebral arteries. Ibrahima Wise MD Brain MRI 12/26/17 0000 Signed Impressions: Service Date/Time: December 18:53 - CONCLUSION: 1. No acute findings. No recent infarct. Minimal white matter ischemic changes. Jakub Montoya MD Objective Remarks GENERAL: Alert, oriented 3, NAD. SKIN: Warm and dry. HEAD: Normocephalic. EYES: No scleral icterus. No injection or drainage. NECK: Supple, trachea midline. No JVD or lymphadenopathy. CARDIOVASCULAR: Regular rate and rhythm without murmurs, gallops, or rubs. RESPIRATORY: Breath sounds equal bilaterally. No accessory muscle use. GASTROINTESTINAL: Abdomen soft, non-tender, nondistended. MUSCULOSKELETAL: No cyanosis, or edema. BACK: Nontender without obvious deformity. No CVA tenderness. 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 Neurology evaluated patient and indicated possible TIA. Probable TIA - continue Aspirin 325mg Qday and lipitor. Pre-diabetes mellitus - patient is advised to take Metformin. Follow up with PCP. Discharge patient to home Condition on discharge: Improved Heart healthy Diet as tolerated Ad Felipa activity Rx written: Aspirin Lipitor Metformin Follow-up with primary care physician within 1 week. Apolinar Boles DO December 27, 2017 14:13
[2017-12-27 14:55] LABS: HEMOGLOBIN A1C 6.4 % (4.3-6.0)
--- NOTE | 2017-12-27 15:56 | ECHRPT ---
Indication: TIA CONCLUSIONS Normal left ventricular size. Mild concentric left ventricular hypertrophy. The left ventricular systolic function is low normal with an estimated ejection fraction in the rang e of 50- 55%. The left atrial size is mildly dilated. The right atrial size is mildly dilated. There is trace tricuspid valve regurgitation. BP: / HR: Rhythm: Sinus MEASUREMENTS (Male / Female) Normal Values Technical Quality:Fair 2D ECHO LV Diastolic Diameter PLAX 2.5 cm 4.2 - 5.9 / 3.9 - 5.3 cm LV Systolic Diameter PLAX 3.1 cm IVS Diastolic Thickness 0.9 cm 0.6 - 1.0 / 0.6 - 0.9 cm LVPW Diastolic Thickness 2.8 cm 0.6 - 1.0 / 0.6 - 0.9 cm LV Relative Wall Thickness 1.5 RV Internal Dim ED PLAX 2.3 cm LVOT Diameter 2.2 cm Aortic Root Diameter 3.4 cm LA Systolic Diameter LX 3.7 cm 3.0 - 4.0 / 2.7 - 3.8 cm M-MODE AV Cusp Separation MM 1.7 cm DOPPLER AV Peak Velocity 176.0 cm/s AV Peak Gradient 12.4 mmHg AV Mean Gradient 8.0 mmHg AV Velocity Time Integral 31.2 cm LVOT Peak Velocity 107.0 cm/s LVOT Peak Gradient 4.6 mmHg LVOT Velocity Time Integral 19.3 cm AV Area Cont Eq vti 2.4 cm AV Area Cont Eq pk 2.3 cm Mitral E Point Velocity 79.5 cm/s Mitral A Point Velocity 97.7 cm/s Mitral E to A Ratio 0.8 LV E' Lateral Velocity 9.9 cm/s Mitral E to LV E' Lateral Ratio 8.0 LV E' Septal Velocity 7.7 cm/s Mitral E to LV E' Septal Ratio 10.3 PV Peak Velocity 77.5 cm/s PV Peak Gradient 2.4 mmHg FINDINGS LEFT VENTRICLE Normal left ventricular size. Mild concentric left ventricular hypertrophy. The left ventricular systolic function is low normal with an estimated ejection fraction in the rang e of 50- 55%. Doppler parameters are consistent with impaired left ventricular relaxtion (grade 1 diastolic dysfun ction). RIGHT VENTRICLE Normal right ventricular size and systolic function. LEFT ATRIUM The left atrial size is mildly dilated. RIGHT ATRIUM The right atrial size is mildly dilated. ATRIAL SEPTUM The interatrial septum not well visualized. AORTA The aortic root and proximal ascending aorta are normal in size on limited imaging. MITRAL VALVE Structurally normal mitral valve. No mitral valve stenosis or regurgitation. AORTIC VALVE Trileaflet aortic valve. No aortic valve stenosis or regurgitation. TRICUSPID VALVE There is trace tricuspid valve regurgitation. PULMONARY VALVE The pulmonary valve is not well visualized. VESSELS The inferior vena cava is normal in size. PERICARDIUM No pericardial effusion. Christoph Carranza MD (Electronically Signed) Final Date:27 Dec 2017 15:56
--- NOTE | 2017-12-27 17:23 | EKG ---
Date Performed: 12/26/2017 Time Performed: 11:30:52 PTAGE: 57 years EKG: SINUS TACHYCARDIA ABNORMAL RHYTHM ECG NO PREVIOUS TRACING DOCTOR: Claribel Ohara Interpretating Date/Time 12/27/2017 16:28:36
--- NOTE | 2017-12-27 20:03 | PD.CONS ---
Assessment and Plan Plan Consult received per stroke order set. EMR reviewed. MRI negative for acute stroke. Neurology consult reviewed and indicates TIA. Consult deferred due to no acute stroke. Please reconsult as appropriate. Thank you. Skylar Marquez MD December 27, 2017 20:03
== END 2017-12-27 17:03 | disposition home or self-care (01) ==
LOC: NEPE 10:47 → NEDA 13:41 → NEPHCDU 16:20
PROVIDERS: ADMIT Hospitalist; ATTEND Hospitalist
DX: G45.9 Transient cerebral ischemic attack, unspecified (principal); R73.03 Prediabetes; I10 Essential (primary) hypertension; E03.9 Hypothyroidism, unspecified; F17.210 Nicotine dependence, cigarettes, uncomplicated; R47.1 Dysarthria and anarthria; R53.1 Weakness; G47.00 Insomnia, unspecified; F41.9 Anxiety disorder, unspecified; F32.9 Major depressive disorder, single episode, unspecified; R94.31 Abnormal electrocardiogram [ECG] [EKG]; J44.9 Chronic obstructive pulmonary disease, unspecified; R42 Dizziness and giddiness
CPT/HCPCS: 70450; 70551; 71045; 80048; 80053; 80061; 80307; 81001; 82140; 82550; 82805; 82948; 83036; 83605; 84443; 84484; 85025; 85610; 85730; 87040; 92526; 92610; 93005; 93306; 93880; 96360; 96361; 96372; 97161; 97165; 99285; G0378; G8987; G8988; G8996; G8997; G8998; J1644; J7030